=== PATIENT | male | born 1970 | race Caucasian/White ===

== ENCOUNTER 2020-05-08 15:00 | Emergency (ER) | payer MEDICAID ==
[~2020-05-08] VITALS: Ht 177.8 cm; Wt 118.0 kg
[2020-05-08] MEDS ORDERED: SODIUM CHLORIDE 0.9% 1,000 ML IV ONE (15:15)
[2020-05-08 17:03] LABS: CHLORIDE 109 mEq/L (98-107)
[2020-05-08 17:07] LABS: BASOPHILS % 0.9 % (0.0-2.0); EOSINOPHILS % 2.2 % (0.0-5.0); HEMATOCRIT. 41.9 % (42.0-52.0); HEMOGLOBIN. 13.5 g/dL (14.0-18.0); LYMPHOCYTES % 32.2 % (20.0-50.0); MEAN CORPUSCULAR HEMOGLOBIN 30.3 pg (28.0-32.0); MONOCYTES % 7.7 % (2.0-8.0); RED BLOOD CELL COUNT 4.46 mill/uL (4.7-6.1); RED CELL DISTRIBUTION WIDTH 16.1 % (11.6-14.6)
[2020-05-08 17:15] VITALS: BP 100/56
[2020-05-08 17:31] LABS: ETHANOL BLOOD 372 mg/dL
[2020-05-08 19:33] LABS: CLARITY URINE CLEAR (CLEAR); COLOR URINE YELLOW (YELLOW); KETONES URINE NEGATIVE (NEGATIVE); LEUKOCYTE ESTERASE URINE NEGATIVE (NEGATIVE); NITRITE URINE NEGATIVE (NEGATIVE); OCCULT BLOOD URINE NEGATIVE (NEGATIVE); PROTEIN URINE 1+ (NEGATIVE); SPECIFIC GRAVITY URINE 1.015 (1.005-1.030); UROBILINOGEN URINE 0.2 E.U./dL (0.2-1.0)
[2020-05-08 19:55] LABS: MEAN PLATELET VOLUME 8.3 fl (7.4-10.4); PLATELET 292 x1000/uL (130-400)
[2020-05-08 19:55] LABS: *AMPHETAMINES SCREEN URINE NEGATIVE (NEGATIVE); *BARBITURATES SCREEN URINE NEGATIVE (NEGATIVE); *BENZODIAZEPINES SCREEN URINE PRESUMTIVE POSITIVE (NEGATIVE); *COCAINE SCREEN URINE NEGATIVE (NEGATIVE); METHADONE URINE SCREEN NEGATIVE (NEGATIVE)
[2020-05-08 19:56] LABS: CANNABINOID URINE SCREEN NEGATIVE (NEGATIVE); OPIATES URINE SCREEN NEGATIVE (NEGATIVE); PHENCYCLIDINE URINE SCREEN NEGATIVE (NEGATIVE)
== END 2020-05-08 19:12 | disposition home or self-care (01) ==
LOC: EDBD 15:00 → ER 15:00
DX: F10.129 Alcohol abuse with intoxication, unspecified (principal); I49.9 Cardiac arrhythmia, unspecified; Z98.890 Other specified postprocedural states; Y90.8 Blood alcohol level of 240 mg/100 ml or more
CPT/HCPCS: 36415; 80053; 80305; 80320; 81003; 82962; 85025; 93005; 96360; 96361; 99284; J7030; G0480

== ENCOUNTER 2020-10-19 21:58 | Emergency (ER) | payer MEDICAID ==
[~2020-10-19] VITALS: Ht 185.4 cm; Wt 127.0 kg
[2020-10-19 22:04] VITALS: BP 147/74
[2020-10-19] MEDS ORDERED: ACETAMINOPHEN WITH CODEINE 300/30MG TABLET PO STA (23:24)
[2020-10-19] MEDS ORDERED: MAGNESIUM/ALUMINUM HYDROXIDE/SIMETHICONE 30ML UDC PO STA (23:24)
[2020-10-19] MEDS ORDERED: ONDANSETRON 4MG ODT PO STA (23:24)
== END 2020-10-20 00:30 | disposition left against medical advice (07) ==
LOC: ER 21:58
DX: K85.20 Alcohol induced acute pancreatitis without necrosis or infection (principal); T51.0X1A Toxic effect of ethanol, accidental (unintentional), initial encounter; F10.20 Alcohol dependence, uncomplicated; Y90.9 Presence of alcohol in blood, level not specified; I10 Essential (primary) hypertension; Y92.89 Other specified places as the place of occurrence of the external cause
CPT/HCPCS: 93005; 99283

== ENCOUNTER 2020-11-06 08:24 | Emergency (ER) | payer MEDICAID ==
[~2020-11-06] VITALS: Ht 177.8 cm; Wt 100.0 kg
[2020-11-06] MEDS ORDERED: PANTOPRAZOLE SODIUM 40 MG/VIAL IV STA (08:32)
[2020-11-06] MEDS ORDERED: ONDANSETRON HCL 4MG/2ML INJ IV STA (08:32)
[2020-11-06] MEDS ORDERED: FAMOTIDINE 20MG/2ML VIAL IV STA (08:32)
[2020-11-06] MEDS ORDERED: HALOPERIDOL LACTATE 5MG/ML VIAL IM STA (08:32)
[2020-11-06] MEDS ORDERED: SODIUM CHLORIDE 0.9% 1,000 ML IV ONE (08:45)
[2020-11-06] MEDS ORDERED: DIPHENHYDRAMINE 50MG/ML VIAL IV ONE (08:45)
[2020-11-06 09:23] LABS: BASOPHILS % 0.7 % (0.0-2.0); EOSINOPHILS % 0.2 % (0.0-5.0); HEMATOCRIT. 40.3 % (42.0-52.0); HEMOGLOBIN. 13.2 g/dL (14.0-18.0); LYMPHOCYTES % 12.4 % (20.0-50.0); MEAN CORPUSCULAR HEMOGLOBIN 30.1 pg (28.0-32.0); MEAN CORPUSCULAR VOLUME 91.8 fL (80.0-94.0); MEAN PLATELET VOLUME 7.5 fl (7.4-10.4); MONOCYTES % 6.3 % (2.0-8.0); NEUTROPHILS % 80.4 % (40.0-76.0); PLATELET 333 x1000/uL (130-400); RED CELL DISTRIBUTION WIDTH 14.6 % (11.6-14.6)
[2020-11-06 09:28] LABS: CHLORIDE 107 mEq/L (98-107)
[2020-11-06 09:30] LABS: INR 1.1; PROTHROMBIN TIME 11.4 sec (9.6-11.0)
[2020-11-06 09:32] LABS: ETHANOL BLOOD 10 mg/dL
[2020-11-06 12:24] VITALS: BP 165/85
[2020-11-06] MEDS ORDERED: PROT40 PO (13:23)
[2020-11-06] MEDS ORDERED: ONDA4TAB5 MT (13:23)
== END 2020-11-06 14:40 | disposition home or self-care (01) ==
LOC: ER 08:26
DX: R11.2 Nausea with vomiting, unspecified (principal); R10.9 Unspecified abdominal pain; F20.9 Schizophrenia, unspecified; R45.851 Suicidal ideations; I10 Essential (primary) hypertension; F17.290 Nicotine dependence, other tobacco product, uncomplicated; F10.229 Alcohol dependence with intoxication, unspecified; Y90.0 Blood alcohol level of less than 20 mg/100 ml
CPT/HCPCS: 36415; 74176; 80053; 80307; 80320; 80329; 83690; 85025; 85610; 93005; 96361; 96372; 96374; 96375; 99285; J1200; J1630; J2405; J3490; J7030; G0480